=== PATIENT | female | born 1960 | race Caucasian/White ===

== ENCOUNTER 2017-06-12 19:53 | Emergency (ER) | payer OTHER ==
[2017-06-12 20:04] VITALS: BP 172/93; PULSE 65; RESP 20; TEMP 98.3; O2SAT 95
[2017-06-12] MEDS ORDERED: TETANUS/DIPHTHERIA TOXOID ADULT 0.5 ML VIAL IM ONE (21:45)
[2017-06-12] MEDS ORDERED: LIDOCAINE HCL 1% PF 10 ML VIAL INFIL ONE (21:45)
--- NOTE | 2017-06-12 21:45 | PD ---
HPI Chief Complaint: Laceration/Skin Injury Time Seen by Provider: 21:39 Travel History International Travel<30 days: No Contact w/Intl Traveler<30days: No Traveled to known affect area: No History of Present Illness HPI 57-year-old female presents to the emergency department by private transportation for evaluation of injury to the left thumb. Patient states just prior to arrival to the emergency department approximately 7:30 PM while at work she was washing a stainless steel and and lacerated her left thumb on the edge of the ledezma. Patient states she is right-handed. Patient denies other injury. Patient states she has intact range of motion of the thumb at the IP. Patient does not know her tetanus status. The patient rates her pain 5/10 in intensity. [facility] Past Medical History Narrative Medical Appendectomy hysterectomy; nursing notes reviewed Medical History: Denies Significant Hx Diminished Hearing: No Tetanus Vaccination: > 5 Years Influenza Vaccination: No Past Surgical History Appendectomy: Yes Hysterectomy: Yes Social History Alcohol Use: Yes Tobacco Use: No Substance Use: No Allergies-Medications (Allergen,Severity, Reaction): Coded Allergies: Penicillins (Verified Allergy, Unknown, RASH, 06/12/17) sulfamethoxazole (Verified Allergy, Unknown, NAUSEA, 06/12/17) trimethoprim (Verified Allergy, Unknown, NAUSEA, 06/12/17) Narrative Medication none Review of Systems Except as stated in HPI: all other systems reviewed are Neg Physical Exam Narrative GENERAL: Well-developed well-nourished female no acute distress or respiratory distress SKIN: Warm and dry. MUSCULOSKELETAL: No cyanosis, or edema. Attention left hand left thumb 2 cm linear laceration to the medial volar aspect of the thumb at the IP with intact flexion extension abduction abduction intact capillary refill less than 2 seconds and neurovascular tendon intact with intact sensation. Data Data Last Documented VS Vital Signs Date Time Temp Pulse Resp B/P (MAP) Pulse Ox O2 Delivery O2 Flow Rate FiO2 06/12/17 20:04 98.3 65 20 172/93 (119) 95 Orders Orders Finger ([id number]) (06/12/17 ) Lidocaine Pf 1% Inj (Xylocaine-Mpf 1% In (06/12/17 21:45) Wound Care (06/12/17 21:39) Tetanus/Diphtheria Tox Adult (Tetanus/Di (06/12/17 21:45) ^ Saline Lock (06/12/17 22:30) Cefazolin Inj (Ancef Inj) (06/12/17 22:30) Gentamicin 80 Mg Premix (Gentamicin 80 M (06/12/17 22:30) Support Splint (06/12/17 23:02) MDM Medical Decision Making Medical Screen Exam Complete: Yes Emergency Medical Condition: Yes Medical Record Reviewed: Yes Interpretation(s) Vital Signs Date Time Temp Pulse Resp B/P (MAP) Pulse Ox O2 Delivery O2 Flow Rate FiO2 06/12/17 20:04 98.3 65 20 172/93 (119) 95 Differential Diagnosis Laceration, neurovascular tendon injury, retained foreign body, bone injury/ fracture Narrative Course Imaging study obtained to evaluate for bony injury/foreign body; tetanus status updated; laceration repaired Procedures Procedure Narrative LACERATION LOCATION: left thumb LENGTH:2 cm NUMBER OF STITCHES/COOPER: [-] REPAIR: The area of the laceration was prepped with Betadine and sterilely draped. The laceration was infiltrated with 1% lidocaine plain. The wound was copiously irrigated and explored without evidence of foreign body, tendon injury or neurovascular injury. The wound was closed using 5-0 nylon. This was a single layer repair. A sterile dressing was applied. The patient was advised to keep the dressing clean and dry. Patient tolerated the procedure well. Tetanus status updated. Physician Communication Physician Communication discussed with hand surgeon --will see this week Diagnosis Primary Impression: Laceration of left thumb Qualified Codes: S61.012A - Laceration without foreign body of left thumb without damage to nail, initial encounter Additional Impression: Open fracture of multiple phalanges of digit of hand Qualified Codes: S62.609B - Fracture of unspecified phalanx of unspecified finger, initial encounter for open fracture Referrals: Hand Surgeon call for appointment call for appointment in AM for this week; Dr Tobin Patient Instructions: General Instructions Med/Other Pt SpecificInfo: Prescription(s) given Scripts Cephalexin (Keflex) 500 Mg Capsule 500 MG PO Q6H for Infection for 7 Days, #28 CAP 0 Refills Prov: Alexus Capellan MD 06/12/17 Disposition: 01 DISCHARGE HOME Condition: Stable Alexus Capellan MD Jun 12, 2017 21:44
--- NOTE | 2017-06-12 21:59 | RADRPT ---
EXAM DATE/TIME: 06/12/2017 21:42 [facility] COMPARISON: No previous studies available for comparison. INDICATIONS : Laceration to left hand, 1st digit by stainless steel ledezma. MEDICAL HISTORY : None. SURGICAL HISTORY : None. ENCOUNTER: Initial ACUITY: 1 day PAIN SCORE: 4/10 LOCATION: Left hand, 1st digit. FINDINGS: There is evidence of a deep soft tissue laceration of the volar/medial aspect of the mid thumb. There is a mildly comminuted but essentially nondisplaced fracture distally of the proximal phalanx. This may be intra-articular at the interphalangeal joint. No radiopaque foreign bodies are demonstrated. CONCLUSION: Deep soft tissue laceration of the thumb with a nondisplaced and probably intra-articular fracture of the head of the proximal phalanx. Justin Clarke MD on June 12, 2017 at 21:54 Board Certified Radiologist. This report was verified electronically.
[2017-06-12] MEDS ORDERED: GENTAMICIN 80 MG PREMIX 100 ML IV ONE (22:30)
[2017-06-12] MEDS ORDERED: CEPH-460 PO (23:21)
[2017-06-13 01:49] VITALS: BP 122/71
== END 2017-06-13 01:53 | disposition home or self-care (01) ==
LOC: PHED 19:53
DX: S61.012A Laceration without foreign body of left thumb without damage to nail, initial encounter (principal); W45.8XXA Other foreign body or object entering through skin, initial encounter; Y93.G1 Activity, food preparation and clean up; Z88.0 Allergy status to penicillin; Z88.2 Allergy status to sulfonamides; Z23 Encounter for immunization; Z88.8 Allergy status to other drugs, medicaments and biological substances
CPT/HCPCS: 12001; 73140; 90471; 90714; 96365; 96367; 99284; J0690; J1580; L3808